=== PATIENT | female | born 1970 | race Caucasian/White ===

== ENCOUNTER → 2019-10-02 | Outpatient (CLI) | payer BC ==
--- NOTE | 2019-10-02 09:14 | PCVCIMAG ---
APPROVED REPORT Study performed: 10/02/2019 07:44:53 EXAM: Comprehensive 2D, Doppler, and color-flow Echocardiogram Patient Location: Echo lab Status: routine BSA: 1.62 HR: 84 bpmBP: 142/72 mmHg Rhythm: NSR Other Information Study Quality: Adequate Indications Murmur 2D Dimensions IVSd: 10.55 (7-11mm) LVDd: 51.98 mm PWd: 9.91 (7-11mm) LVDs: 36.30 (25-40mm) Left Atrium: 39.45 (27-40mm) Aortic Root: 30.36 mm LV Single Plane 4CH: 60.97 % LV Single Plane 2CH: 61.37 % Biplane EF: 62.6 % Volumes Left Atrial Volume (Systole) Single Plane 4CH: 63.69 mLSingle Plane 2CH: 89.32 mL LA ESV Index: 47.00 mL/m2 Aortic Valve AoV Peak Geovanny.: 2.21 m/s AO Peak Gr.: 19.47 mmHgLVOT Max P.21 mmHg LVOT Max V: 1.43 m/s Mitral Valve E/A Ratio: 2.0 MV Decel. Time: 162.11 ms MV E Max Geovanny.: 1.36 m/s MV A Geovanny.: 0.69 m/s IVRT: 69.20 ms Pulmonary Valve PV Peak Geovanny.: 1.62 m/sPV Peak Gr.: 10.52 mmHg Pulmonary Vein P Vein S: 0.45 m/sP Vein A: 0.32 m/s P Vein D: 0.58 m/sP Vein A Dur.: 107.3 msec P Vein S/D Ratio: 0.78 Tricuspid Valve TR Peak Geovanny.: 2.70 m/s TR Peak Gr.: 29.21 mmHg Left Ventricle The left ventricle is normal size. There is normal LV segmental wall motion. There is normal left ventricular wall thickness. Left ventricular systolic function is normal. The left ventricular ejection fraction is within the normal range. LVEF is 60-65%. The left ventricular diastolic function is normal. Right Ventricle The right ventricle is normal size. The right ventricular systolic function is normal. Atria Left atrium is moderately dilated. The right atrium size is normal. Aortic Valve Mild aortic valve sclerosis, trileaflet. Trace aortic regurgitation. There is no aortic valvular stenosis. Mitral Valve The mitral valve is normal in structure. Mild mitral regurgitation. No evidence of mitral valve stenosis. Tricuspid Valve The tricuspid valve is normal in structure. Mild tricuspid regurgitation with PAP of 35 mmHg. Pulmonic Valve The pulmonary valve is normal in structure. There is no pulmonic valvular regurgitation. Great Vessels The aortic root is normal in size. IVC is dilated and collapses >50% with inspiration. Pericardium There is no pericardial effusion. There is no pleural effusion. <Conclusion> Left ventricular systolic function is normal. There is normal LV segmental wall motion. LVEF is 60-65%. Normal diastolic function Left atrium is moderately dilated. Mild aortic valve sclerosis, trileaflet. Trace aortic regurgitation, no stenosis. The mitral valve is normal in structure. Mild mitral regurgitation. Mild tricuspid regurgitation with pulmonary artery pressure of 35 mmHg. There is no pericardial effusion.
== END | disposition home or self-care (01) ==
LOC: PCVCIMAG 08:35
PROVIDERS: ATTEND Internal Medicine
DX: I08.1 Rheumatic disorders of both mitral and tricuspid valves (principal); R01.1 Cardiac murmur, unspecified
CPT/HCPCS: 93306